=== PATIENT | female | born 1950 | race Caucasian/White ===

== ENCOUNTER 2017-03-02 16:29 | Emergency (ER) | payer MEDICARE, OTHER ==
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
[2017-03-02 17:11] LABS: Hematocrit 38.1 % (37.0-47.0); Hemoglobin 12.4 gm/dL (12.5-16.0); Mean Cell Volume 79.2 fl (78-100); Mean Corpuscular Hemoglobin 25.8 pg (27-31); Mean Corpuscular Hgb Conc 32.5 g/dl (32-36); Mean Platelet Volume 9.9 fl (6.0-9.5); Neutrophil # 7.3 K/mm3 (1.3-6.0); Neutrophil % 75.4 % (42-75.0); Platelet Count 336 K/mm3 (150-450); Red Blood Count 4.81 M/mm3 (4.2-5.4); Red Cell Distribution Width 15.8 % (11.5-14.0); White Blood Count 9.7 K/mm3 (4.0-10.5)
[2017-03-02 17:19] LABS: Prothrombin Time (Patient) 13.6 Seconds (9.4-11.4)
[2017-03-02 17:21] LABS: Albumin * 2.8 gm/dl (3.4-5.0); Anion Gap 13.8 mmol/L (6.8-13.8); BUN/Creatinine Ratio 16.5 (9.0-21.6); Bilirubin, Total 0.4 mg/dL (0.0-1.1); Ca. Corrected For Albumin 9.8 mg/dL (8.4-10.2); Calcium * 9.2 mg/dL (7.9-10.9); INR 1.31 INR (0.90-1.10); Partial Thrombolplastin Time 32.9 Seconds (24-32); Potassium 3.8 mmol/L (3.4-4.6); Total Protein 7.8 gm/dL (6.2-8.2)
[2017-03-02 18:11] VITALS: BP 151/79
== END 2017-03-02 18:26 | disposition home or self-care (01) ==
LOC: ER 16:29
DX: S70.11XA Contusion of right thigh, initial encounter (principal); V48.0XXA Car driver injured in noncollision transport accident in nontraffic accident, initial encounter; W22.10XA Striking against or struck by unspecified automobile airbag, initial encounter; Y93.9 Activity, unspecified; Y92.410 Unspecified street and highway as the place of occurrence of the external cause; T14.8 Other injury of unspecified body region; I48.91 Unspecified atrial fibrillation; Z79.01 Long term (current) use of anticoagulants; I10 Essential (primary) hypertension; E78.5 Hyperlipidemia, unspecified